=== PATIENT | female | born 1995 | race Caucasian/White ===

== ENCOUNTER 2020-07-16 10:58 | Outpatient (CLI) | payer OTHER, SELFPAY ==
--- NOTE | 2020-07-19 12:45 | WPDHOLTEREM ---
Holter/Event Monitor Holter/Event Monitor Date of procedure: 07/16/20 Procedure Type: 48 hour holter monitor Indications: Palpitations Conclusion: 1. 48 hour holter monitor on 07/16/20. 2. Underlying rhythm is sinus rhythm with sinus arrhythmia. HR range 41-179 bpm; average HR 83 bpm. 3. There are 5 premature supraventricular complexes. No supraventricular tachycardia. 4. There are 15 premature ventricular complexes and 1 ventricular couplet. No ventricular tachycardia. 5. No sinoatrial or atrioventricular blocks. No significant pauses greater than 2 seconds. 6. Patient reports symptoms of chest pain, palpitations, lightheadedness and nausea which demonstrate sinus rhythm, HR range 61-91 bpm.
== END 2020-07-16 10:59 | disposition home or self-care (01) ==
PROVIDERS: PCP Internal Medicine; Visit Provider Physician Assistant
DX: R00.2 Palpitations (principal)
CPT/HCPCS: 93225; 93226